=== PATIENT | male | born 1980 | race Caucasian/White ===

== ENCOUNTER 2018-05-06 11:48 | Outpatient (CLI) | payer OTHER ==
[2015-09-17 20:46] VITALS: BP 127/84
[2018-05-06 12:20] LABS: BASOPHILS % 1.2 (0.0-1.5); EOSINOPHILS % 3.1 % (0.0-6.8); MEAN CORPUSCULAR HEMOGLOBIN 28.3 pg (28.0-34.0); MEAN CORPUSCULAR VOLUME 88.8 fl (80.0-100.0); MONOCYTES % 7.2 % (0.0-11.0); NEUTROPHILS # 3.8 # k/uL (1.4-7.7)
[2018-05-06 12:55] LABS: eGFR (African) > 60; eGFR (Non-African) > 60
== END 2018-05-06 11:50 ==
LOC: LAB 11:48
PROVIDERS: ATTEND Physician Assistant
DX: R53.83 Other fatigue (principal); R63.5 Abnormal weight gain
CPT/HCPCS: 36415; 80053; 84439; 84443; 84481; 85025